=== PATIENT | male | born 1990 | race Caucasian/White ===

== ENCOUNTER 2019-01-01 01:09 | Emergency (ER) | payer OTHER ==
[~2019-01-01] VITALS: Ht 182.9 cm; Wt 65.8 kg
[2019-01-01 01:27] VITALS: Ht 182.9 cm; Wt 65.8 kg
[2019-01-01 02:37] VITALS: BP 103/70
== END 2019-01-01 02:43 | disposition other institution (70) ==
LOC: ED 01:09
DX: F20.9 Schizophrenia, unspecified (principal); F32.9 Major depressive disorder, single episode, unspecified; Z13.89 Encounter for screening for other disorder
CPT/HCPCS: J2060

== ENCOUNTER 2019-01-01 01:09 | Emergency (ER) | payer OTHER | END 2019-01-01 02:43 | disposition other institution (70) | LOC: ED 01:09 | DX: Z02.89 Encounter for other administrative examinations (principal) ==